=== PATIENT | male | born 1985 | race Caucasian/White ===

== ENCOUNTER 2019-01-17 10:30 | Emergency (ER) | payer OTHER ==
[2019-01-17 10:36] VITALS: BP 136/79; PULSE 66; TEMP 97.6; BMI 31.5
[2019-01-17] MEDS ORDERED: TETRACAINE 0.5% OPHTH SOLN 2 ML BOTTLE ONE (11:00)
[2019-01-17] MEDS ORDERED: TETRACAINE 0.5% HCL 0.6ML DROPPER.BOTTLE OU ONE (11:01)
[2019-01-17] MEDS ORDERED: FLUORESCEIN NA 1 EA STRIP ONE (11:01)
[2019-01-17] MEDS ORDERED: FLUORESCEIN NA 1 EA STRIP OU ONE (11:01)
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
[2019-01-17] MEDS ORDERED: SODIUM CHLORIDE 1,000 ML IV STA (11:03)
[2019-01-17 11:52] LABS: BASO % 0.5 % (0-2.0); EOS % 1.6 % (0-4.5); HEMATOCRIT 40.7 % (35.4-49); HEMOGLOBIN 13.7 GM/dL (11.7-16.9); LYMPH % 27.5 % (8-40); MCH 28.5 pg (25.7-33.7); MCHC 33.6 g/dl (32.0-35.9); MEAN CELL VOLUME 84.8 fl (80-96); MEAN PLT VOLUME 8.1 fl (7.5-11.1); MONO % 13.9 % (3.8-10.2); NEUT % 56.5 % (42.8-82.8); PLATELET COUNT 179 K/MM3 (134-434); RDW 13.4 % (11.9-15.9); WHITE BLOOD COUNT 6.8 K/mm3 (4.0-10.0)
[2019-01-17 12:40] LABS: ALBUMIN 4.1 g/dl (3.4-5.0); ALK PHOS 54 U/L (45-117); ANION GAP 4 MMOL/L (8-16); BILIRUBIN,TOTAL 0.5 mg/dL (0.2-1); BLOOD UREA NITROGEN 17 mg/dL (7-18); CALCIUM 9.1 mg/dL (8.5-10.1); CHLORIDE 104 mmol/L (98-107); CO2 29 mmol/L (21-32); CREATININE 0.9 mg/dL (0.55-1.3); GLUCOSE,RANDOM 85 mg/dL (74-106); POTASSIUM 3.9 mmol/L (3.5-5.1); SGOT/AST 29 U/L (15-37); SGPT/ALT 44 U/L (13-61); SODIUM 138 mmol/L (136-145); TOT PROT 6.7 g/dl (6.4-8.2)
== END 2019-01-17 13:52 | disposition home or self-care (01) ==
LOC: JERFT 10:30
PROC: 3E0337Z Introduction of Electrolytic and Water Balance Substance into Peripheral Vein, Percutaneous Approach (ICD-10-PCS; principal; 2019-01-17)
DX: S46.919A Strain of unspecified muscle, fascia and tendon at shoulder and upper arm level, unspecified arm, initial encounter (principal); X58.XXXA Exposure to other specified factors, initial encounter; Y93.89 Activity, other specified; Y92.480 Sidewalk as the place of occurrence of the external cause; Y99.0 Civilian activity done for income or pay
CPT/HCPCS: 36415; 80053; 82375; 82550; 82553; 85025; 99282-25; J7030

== ENCOUNTER 2019-01-21 09:57 | Emergency (ER) | payer OTHER ==
[2019-01-21 10:04] VITALS: BP 127/73; PULSE 82; TEMP 97.7; BMI 31.2
[2019-01-21] MEDS ORDERED: DIPHTH,PERTUSS(ACELL),TET 0.5 ML DISP.SYRIN IM ONE ×2 (10:09→10:34)
--- NOTE | 2019-01-21 10:40 | PDOC ---
History of Present Illness - General Chief Complaint: Injury Stated Complaint: INJURY TO HAND Time Seen by Provider: 01/21/19 10:09 Exam Limitations: No Limitations (L palmar laceration) Past History - Travel Close contact w/someone who was outside of country & ill: No - Past Medical History Allergies/Adverse Reactions: Allergies Allergy/AdvReac Type Severity Reaction Status Date / Time No Known Allergies Allergy Verified 01/21/19 10:03 Home Medications: Ambulatory Orders Albuterol Sulfate Inhaler - [Ventolin Hfa Inhaler -] 1 - 2 inh PO QID 01/21/19 Asthma: Yes COPD: No - Immunization History Immunization Up to Date: Yes - Suicide/Smoking/Psychosocial Hx Smoking History: Never smoked Have you smoked in the past 12 months: No Hx Alcohol Use: No Drug/Substance Use Hx: No Review of Systems - Review of Systems Is the patient limited Welsh proficient: No Constitutional: No: Chills, Fever Musculoskeletal: Yes: Other (laceration) Integumentary: No: Erythema *Physical Exam - Vital Signs Last Vital Signs Temp Pulse Resp BP Pulse Ox 97.7 F 82 18 127/73 99 01/21/19 10:00 01/21/19 10:00 01/21/19 10:00 01/21/19 10:00 01/21/19 10:00 - Physical Exam General Appearance: Yes: Nourished Extremity: positive: Normal Capillary Refill, Normal Range of Motion, Other (L hand: 2.5cm laceration in palmar aspect of hand, FROM, no tendon exponsure) 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, Fully Oriented, Alert Moderate Sedation - Procedure Monitoring Vital Signs: Procedure Monitoring Vital Signs Temperature 97.7 F 01/21/19 10:00 Pulse Rate 82 01/21/19 10:00 Respiratory Rate 18 01/21/19 10:00 Blood Pressure 127/73 01/21/19 10:00 O2 Sat by Pulse Oximetry (%) 99 01/21/19 10:00 Procedures - Laceration/Wound Repair Left Upper Volar Hand Wound's Depth, Shape: superficial Irrigated w/ Saline: Yes Betadine Prep: Yes Anesthesia: 2% Lidocaine Wound Repaired With: Sutures Suture Size/Type: 4:0, 3:0 Number of Sutures: 5 Sterile Dressing Applied: Yes Medical Decision Making - Medical Decision Making 01/21/19 10:36 33y/o M L hand dominant presents with laceration to the left arm that was sustained at work while cutting a cane today. Unknown of last tetanus exam with linear 2.5 cm laceration in palmar aspect of hand tetanus updated lac closed. *DC/Admit/Observation/Transfer Diagnosis at time of Disposition: Laceration - Discharge Dispostion Disposition: HOME Condition at time of disposition: Stable Decision to Admit order: No - Referrals Referrals: Crow Benjamin MD [Primary Care Provider] - - Patient Instructions Printed Discharge Instructions: DI for Suture Removal Additional Instructions: sutures should be removed in 10 days Please follow up with your PCP for suture removal or return to the ER here is any worsening pain, redness or discharge to the site, please return to the ER immediately Take Tylenol Motrin or pain. - Post Discharge Activity Forms/Work/School Notes: Back to Work
== END 2019-01-21 10:46 | disposition home or self-care (01) ==
LOC: JERFT 09:57
PROC: 3E0234Z Introduction of Serum, Toxoid and Vaccine into Muscle, Percutaneous Approach (ICD-10-PCS; principal; 2019-01-21)
PROC: 0HQGXZZ Repair Left Hand Skin, External Approach (ICD-10-PCS; 2019-01-21)
DX: S61.412A Laceration without foreign body of left hand, initial encounter (principal); W26.8XXA Contact with other sharp object(s), not elsewhere classified, initial encounter; Y93.89 Activity, other specified; Y92.89 Other specified places as the place of occurrence of the external cause; Y99.0 Civilian activity done for income or pay
CPT/HCPCS: 90715; 99281-25

== ENCOUNTER 2019-01-31 14:25 | Emergency (ER) | payer OTHER ==
[2019-01-31 14:36] VITALS: BP 154/77; PULSE 77; TEMP 98.3; BMI 31.2
--- NOTE | 2019-01-31 14:45 | PDOC ---
Rapid Medical Evaluation Time Seen by Provider: 01/31/19 14:33 Medical Evaluation: Allergies Allergy/AdvReac Type Severity Reaction Status Date / Time No Known Allergies Allergy Verified 01/21/19 10:03 01/31/19 14:45 Pt is a 33 y/o M who presents for evaluation of his sutures to his L hand. States they should come out today. He states that he noted some pus coming out of the 3rd stitch yesterday, but denies redness to the site, fever, hand pain, nausea, and numbness/tingling to the extremity. ROS: all negative except what is noted above Exam: 5 simple interrupted sutures in the palm of the L hand. Wound is well approximated with no signs of secondary infection. No fluctuance to suggest abscess. A/P: suture removal Wound is well healed, sutures removed today Tetanus updated at last visit DC home with hand surgery as needed. Discharge Disposition - Diagnosis Visit for suture removal - Discharge Dispostion Disposition: HOME Condition at time of disposition: Stable Decision to Admit order: No - Referrals Referrals: Wayne Jaime MD [Staff Physician] - - Patient Instructions Printed Discharge Instructions: DI for Suture Removal Additional Instructions: Keep the area clean and dry Follow up with hand surgery if you develop worsening pain or fever You may put a thin layer of bacitracin on the wound twice a day Return to the ED for any new or worsening symptoms - Post Discharge Activity Work/School Note: Back to School
== END 2019-01-31 15:00 | disposition home or self-care (01) ==
LOC: JERFT 14:25
DX: Z48.02 Encounter for removal of sutures (principal)
CPT/HCPCS: 99281-25